=== PATIENT | male | born 1990 | race Hispanic/Latino ===

== ENCOUNTER 2018-02-18 19:47 | Emergency (ER) | payer SELFPAY ==
[2018-02-18 20:06] VITALS: BP 123/75; PULSE 81; RESP 16; TEMP 98.3; O2SAT 100
--- NOTE | 2018-02-18 21:45 | C.PDOC ---
History Of Present Illness 27 y/o male c/o yellow penile discharge x 2 days, no dysuria, had unproteced sex 2 weeks ago, denies penile pain, ab pain, no scotal pain or swelling. Time Seen by Provider: 02/18/18 20:43 Chief Complaint (Nursing): Male Genitourinary Past Medical History Vital Signs: Last Vital Signs Temp 98.3 F 02/18/18 20:00 Pulse 81 02/18/18 20:00 Resp 16 02/18/18 20:00 BP 123/75 02/18/18 20:00 Pulse Ox 100 02/18/18 21:45 - Social History Hx Alcohol Use: Yes Hx Substance Use: Yes - Immunization History Hx Influenza Vaccination: Yes Hx Pneumococcal Vaccination: No ED Course And Treatment O2 Sat by Pulse Oximetry: 100 Medical Decision Making Medical Decision Making: pt txed with 2 g azithromycin; lg wbc in urinel no urinary sympotms, will not treat for uti, will follow culture. dc home. Disposition Counseled Patient/Family Regarding: Diagnosis, Need For Followup - Disposition Referrals: [facility] [Outside] Ric Gonzalez Jr., MD [Staff Provider] - Disposition: HOME/ ROUTINE Disposition Time: 22:25 Condition: GOOD Additional Instructions: Recommend no sexual activity until re-evaluated and tested in one we for any sexually transmitted infections. Follow up in medical clinic, or STD clinic ( there is one in [place]) or with urologist. Instructions: Urethritis (DC) Forms: [facility] (Sl[place]ak), General Discharge Instructions - Clinical Impression Clinical Impression: Urethritis, unspecified
[2018-02-18 22:01] LABS: SQUAMOUS EPITHIAL < 1 /hpf (0-5); URINE AMORPHOUS SEDIMENT RARE /ul (<OCC); URINE BACTERIA FEW (<OCC); URINE BILIRUBIN NEGATIVE (NEGATIVE); URINE BLOOD NEGATIVE (NEGATIVE); URINE CLARITY Hazy (Clear); URINE COLOR Yellow (YELLOW); URINE GLUCOSE (UA) NORMAL (Normal); URINE LEUKOCYTE ESTERASE 1+ Leu/uL (Negative); URINE PROTEIN NEGATIVE (NEGATIVE)
== END 2018-02-18 22:31 | disposition home or self-care (01) ==
LOC: C.ER 19:47
DX: N34.2 Other urethritis (principal)